=== PATIENT | male | born 1965 ===

== ENCOUNTER 2017-09-03 08:55 | Observation (INO) | payer BC ==
[2017-09-03 08:56] VITALS: BMI 22.8
[2017-09-03 09:58] LABS: BASO # 0.07 K/mm3 (0.0-2.0); BASO % 1.1 % (0.0-3.0); EOS # 0.2 (0.0-0.7); EOS % 2.5 % (1.5-5.0); GRAN # 3.97 (1.4-6.5); GRAN % 64.9 % (50.0-68.0); HEMATOCRIT 44.1 % (42.0-52.0); LYMPH # 1.3 (1.2-3.4); LYMPH % 20.5 % (22.0-35.0); MEAN CORPUSCULAR HEMOGLOBIN 32.5 pg (25.0-35.0); MEAN CORPUSCULAR HGB CONC 34.9 g/dl (31.0-37.0); MEAN PLATELET VOLUME 9.5 fl (7.0-11.0); MONO # 0.7 (0.1-0.6); RED CELL DISTRIBUTION WIDTH 12.5 % (11.5-14.5); WHITE BLOOD COUNT 6.1 10^3/ul (4.5-11.0)
[2017-09-03 10:08] LABS: PH,URINE 6.5 (4.7-8.0); URINE BILIRUBIN NEGATIVE (NEGATIVE); URINE BLOOD NEGATIVE (NEGATIVE); URINE GLUCOSE (UA) NEGATIVE (NEGATIVE); URINE KETONE NEGATIVE (NEGATIVE); URINE LEUKOCYTE ESTERASE NEGATIVE Leu/uL (NEGATIVE); URINE PROTEIN NEGATIVE mg/dL (<30 mg/dL); URINE UROBILINOGEN 0.2 E.U./dL (<1 E.U./dL)
[2017-09-03 10:09] LABS: URINE APPEARANCE CLEAR (CLEAR); URINE COLOR YELLOW (YELLOW)
[2017-09-03 10:12] LABS: ALB/GLOB RATIO 1.4 (1.1-1.8); ALKALINE PHOSPHATASE 65 U/L (38-126); ALT/SGPT 41 U/L (7-56); AST/SGOT 34 U/L (17-59); BILIRUBIN,TOTAL 0.7 mg/dL (0.2-1.3); BLOOD UREA NITROGEN 10 mg/dL (7-21); CALCIUM 9.6 mg/dL (8.4-10.5); CARBON DIOXIDE 25 mmol/L (21-33); CHLORIDE 104 mmol/L (98-107); GFR AFRICAN-AMERICAN > 60; GLUCOSE,RANDOM 97 mg/dL (70-110); POTASSIUM 3.9 mmol/L (3.6-5.0); SODIUM 139 mmol/L (132-148); TOTAL PROTEIN 7.4 g/dL (5.8-8.3)
--- NOTE | 2017-09-03 10:16 | RAD ---
HISTORY: dizziness/weakness COMPARISON: 10/11/2016. FINDINGS: LUNGS: The lungs are hyperinflated and there is peribronchial thickening with chronic changes in both lungs. There is a stable calcified granuloma in the right upper lobe. PLEURA: No significant pleural effusion identified, no pneumothorax apparent. CARDIOVASCULAR: Normal. OSSEOUS STRUCTURES: No significant abnormalities. VISUALIZED UPPER ABDOMEN: Normal. OTHER FINDINGS: None. IMPRESSION: No active pulmonary disease. COPD.
[2017-09-03 10:23] LABS: TROPONIN I < 0.01 ng/mL
--- NOTE | 2017-09-03 10:26 | CT ---
PROCEDURE: CT HEAD WITHOUT CONTRAST. HISTORY: dizziness COMPARISON: None available. TECHNIQUE: Axial computed tomography images were obtained through the head/brain without intravenous contrast. Radiation dose: Total exam DLP = 726 mGy-cm. This CT exam was performed using one or more of the following dose reduction techniques: Automated exposure control, adjustment of the mA and/or kV according to patient size, and/or use of iterative reconstruction technique. FINDINGS: HEMORRHAGE: No intracranial hemorrhage. BRAIN: No mass effect or edema. No atrophy or chronic microvascular ischemic changes. VENTRICLES: Unremarkable. No hydrocephalus. CALVARIUM: Unremarkable. PARANASAL SINUSES: Unremarkable as visualized. No significant inflammatory changes. MASTOID AIR CELLS: Unremarkable as visualized. No inflammatory changes. OTHER FINDINGS: None. IMPRESSION: No acute findings
--- NOTE | 2017-09-03 10:36 | ED PDOC ---
Arrival/HPI - General Historian: Patient <Bre Castañeda - Last Filed: 09/03/17 12:48> <Jony Abbasi - Last Filed: 09/03/17 13:07> - General Chief Complaint: Dizziness/Lightheaded Time Seen by Provider: 09/03/17 09:23 - History of Present Illness Narrative History of Present Illness (Text): 09/03/17 10:26 52-year-old male presents today with a one-day history of generalized weakness. Patient states he woke up this morning feeling extremely dizzy. Patient states when he stands up he feels as if he is going to pass out. Complaining of nausea without vomiting. No abdominal pain. Denies fevers or chills. Patient states he has been waking up in a cold sweat. Patient states he drinks alcohol on the weekends. He denies recent alcohol consumption. He denies chest pain. He denies headache. Denies dysuria or urinary frequency. Denies back pain. (Bre Castañeda) Past Medical History - Provider Review Nursing Documentation Reviewed: Yes - Travel History Have you recently traveled outside [place] w/in the past 3 mons?: No - Past History Past History: No Previous - Infectious Disease Hx of Infectious Diseases: None - Tetanus Immunization Tetanus Immunization: Unknown - Cardiac Hx Cardiac Disorders: No - Pulmonary Hx Respiratory Disorders: Yes Hx Asthma: Yes Hx Pneumonia: Yes - Neurological Hx Migraine: No - HEENT Hx Deafness: No - Renal Hx Dialysis: No - Endocrine/Metabolic Hx Endocrine Disorders: No - Hematological/Oncological Hx AIDS: No - Integumentary Hx Dermatological Disorder: No - Musculoskeletal/Rheumatological Hx Musculoskeletal Disorders: No - Gastrointestinal Hx Gastrointestinal Disorders: No - Genitourinary/Gynecological Hx Genitourinary Disorders: No - Psychiatric Hx Depression: No Hx Substance Use: No - Surgical History Other/Comment: Prost Right Eye 1982. Hernia Repair approx 3/4 years ago. - Anesthesia Hx Anesthesia: Yes Hx Anesthesia Reactions: No - Suicidal Assessment Feels Threatened In Home Enviroment: No <Bre Castañeda - Last Filed: 09/03/17 12:48> Family/Social History - Physician Review Nursing Documentation Reviewed: Yes Smoking Status: Current Some Days Smoker Hx Alcohol Use: Yes Frequency of alcohol use: Socially Hx Substance Use: No Hx Substance Use Treatment: No <Bre Castañeda - Last Filed: 09/03/17 12:48> - Physician Review Nursing Documentation Reviewed: Yes Family/Social History: Unknown Family HX <Jony Abbasi - Last Filed: 09/03/17 13:07> Allergies/Home Meds <Bre Castañeda - Last Filed: 09/03/17 12:48> <Jony Abbasi - Last Filed: 09/03/17 13:07> Allergies/Adverse Reactions: Allergies pcn Allergy (Severe, Uncoded 09/03/17 09:10) ANAPHYLAXIS Review of Systems - Review of Systems Constitutional: Fatigue. absent: Fevers Eyes: absent: Vision Changes, Photophobia, Eye Pain ENT: absent: Sore Throat, Sinus Congestion Respiratory: absent: SOB, Cough Cardiovascular: absent: Chest Pain, Palpitations Gastrointestinal: absent: Abdominal Pain, Constipation, Diarrhea, Nausea, Vomiting Genitourinary Male: absent: Dysuria, Frequency, Hematuria Musculoskeletal: absent: Arthralgias, Back Pain, Neck Pain Skin: absent: Rash, Pruritis Neurological: Dizziness, Disequilibrium. absent: Headache, Focal Weakness, Speech Changes, Facial Droop Endocrine: absent: Diaphoresis Hemo/Lymphatic: absent: Adenopathy Psychiatric: absent: Anxiety, Depression, Suicidal Ideation <Bre Castañeda T - Last Filed: 09/03/17 12:48> Physical Exam Vital Signs Reviewed: Yes Temperature: Afebrile Blood Pressure: Hypertensive Pulse: Regular Respiratory Rate: Normal Appearance: Positive for: Well-Appearing, Non-Toxic, Comfortable Pain Distress: None Mental Status: Positive for: Alert and Oriented X 3 Finger Stick Blood Glucose: 111 - Systems Exam Head: Present: Atraumatic Pupils: Present: PERRL Extroacular Muscles: Present: EOMI Conjunctiva: Present: Normal Mouth: Present: Moist Mucous Membranes Neck: Present: Normal Range of Motion Respiratory/Chest: Present: Clear to Auscultation, Good Air Exchange. No: Respiratory Distress, Accessory Muscle Use Cardiovascular: Present: Regular Rate and Rhythm, Normal S1, S2. No: Murmurs Abdomen: No: Tenderness, Distention, Rebound, Guarding Back: Present: Normal Inspection Upper Extremity: Present: Normal ROM Lower Extremity: Present: Normal ROM. No: Edema Neurological: Present: GCS=15, Speech Normal, Motor Func Grossly Intact, Normal Sensory Function Skin: Present: Warm, Dry, Normal Color. No: Rashes Psychiatric: Present: Alert, Oriented x 3 <Bre Castañeda - Last Filed: 09/03/17 12:48> Vital Signs Temp Pulse Resp BP Pulse Ox 09/03/17 11:36 85 18 130/90 100 09/03/17 09:45 97.7 F 82 16 152/87 H 100 Medical Decision Making <Bre Castañeda - Last Filed: 09/03/17 12:48> <Jony Abbasi - Last Filed: 09/03/17 13:07> ED Course and Treatment: 09/03/17 11:33 52-year-old male presents today with generalized weakness dizziness and near syncope. CBC within normal limits CMP within normal limits Troponin within normal limits EKG shows normal sinus rhythm at 83 bpm normal axis normal intervals no ST elevations Chest x-ray no infiltrate or effusion CAT scan of the head within normal limits Urinalysis within normal limits Patient was given aspirin and meclizine by mouth. Patient given normal saline at [address] abbasi discussed case with dr. post and resident in depth;accepts observational status admission impression; dizziness, weakness, near syncope observational status admission to [facility]. (Bre Castañeda) - Lab Interpretations Lab Results: 09/03/17 09:40 09/03/17 09:40 Lab Results 09/03/17 10:00: Urine Color Yellow, Urine Appearance Clear, Urine pH 6.5, Ur Specific [place] 1.010, Urine Protein Negative, Urine Glucose (UA) Negative, Urine Ketones Negative, Urine Blood Negative, Urine Nitrate Negative, Urine Bilirubin Negative, Urine Urobilinogen 0.2, Ur Leukocyte Esterase Negative 09/03/17 09:40: Triglycerides 93, Cholesterol 155, LDL Cholesterol Direct Pending, HDL Cholesterol 52 09/03/17 09:40: WBC 6.1, RBC 4.74, Hgb 15.4, Hct 44.1, MCV 93.0, MCH 32.5, MCHC 34.9, RDW 12.5, Plt Count 302, MPV 9.5, Gran % 64.9, Lymph % (Auto) 20.5 L, Campbell % (Auto) 11.0 H, Eos % (Auto) 2.5, Baso % (Auto) 1.1, Gran # 3.97, Lymph # 1.3, Campbell # 0.7 H, Eos # 0.2, Baso # 0.07 09/03/17 09:40: Sodium 139, Potassium 3.9, Chloride 104, Carbon Dioxide 25, Anion Gap 15, BUN 10, Creatinine 0.8, Est GFR ( Amer) > 60, Est GFR (Non- Af Amer) > 60, Random Glucose 97, Calcium 9.6, Total Bilirubin 0.7, AST 34, ALT 41, Alkaline Phosphatase 65, Lactate Dehydrogenase 391, Total Creatine Kinase 46 , Troponin I < 0.01, Total Protein 7.4, Albumin 4.3, Globulin 3.1, Albumin/ Globulin Ratio 1.4 - RAD Interpretation Radiology Orders: 09/03/17 09:45 HEAD W/O CONTRAST [CT] Stat 09/03/17 09:46 CHEST PORTABLE [RAD] Stat - Medication Orders Current Medication Orders: Albuterol/Ipratropium (Duoneb 3 Mg/0.5 Mg (3 Ml) Ud) 3 ml IH [id number] PRN PRN Reason: Shortness of Breath Sodium Chloride (Sodium Chloride 0.9%) 1,000 mls @ 100 mls/hr IV .Q10H [facility] Last Admin: 09/03/17 11:09 Dose: 100 mls/hr eMAR Start Stop Document 09/03/17 11:09 SE (Rec: 09/03/17 11:09 SE [id number]) Intravenous Solution Start Date 09/03/17 Start Time 11:09 Pantoprazole Sodium (Protonix Ec Tab) 40 mg PO 0600 [facility] Discontinued Medications Aspirin (Aspirin) 325 mg PO STAT STA Stop: 09/03/17 11:00 Last Admin: 09/03/17 11:05 Dose: 325 mg Meclizine HCl (Antivert) 25 mg PO STAT STA Stop: 09/03/17 11:29 Last Admin: 09/03/17 11:33 Dose: 25 mg - 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 <Jony Abbasi - Last Filed: 09/03/17 13:07> Disposition/Present on Arrival - Present on Arrival Any Indicators Present on Arrival: No History of DVT/PE: No History of Uncontrolled Diabetes: No Urinary Catheter: No History of Decub. Ulcer: No History Surgical Site Infection Following: None - Disposition Have Diagnosis and Disposition been Completed?: Yes Disposition Time: 11:30 Patient Plan: Observation <Bre Castañeda - Last Filed: 09/03/17 12:48> <Jony Abbasi - Last Filed: 09/03/17 13:07> - Disposition Diagnosis: Dizziness, Weakness, Near syncope Disposition: HOSPITALIZED Patient Problems: Current Active Problems Problem Status Onset Dizziness Acute Near syncope Acute Weakness Acute Condition: FAIR
[2017-09-03] MEDS: Sodium Chloride 0.9% 1,000 ML IV SCH (11:09)
[2017-09-03] MEDS ORDERED: Albuterol-Ipratrop 3 mg / 0.5 (3 ml) UD IH PRN (12:34)
[2017-09-03 13:06] LABS: CHOLESTEROL 155 mg/dL (130-200)
--- NOTE | 2017-09-03 14:32 | US ---
PROCEDURE: Bilateral carotid artery duplex ultrasound HISTORY: Carotid stenosis dizziness PHYSICIAN(S): Jay Mcelroy MD. TECHNIQUE: Duplex sonography and color-flow Doppler were used to evaluate the carotid bifurcations and limited segments of the vertebral arteries bilaterally. FINDINGS: There is mild smooth heterogeneous plaque noted at the carotid bifurcations bilaterally. The peak systolic velocity in the proximal right internal carotid artery is 64 cm/sec. This corresponds to a 20 to 39% proximal right ICA stenosis. Normal systolic velocities are noted in the proximal right external carotid artery. There is antegrade flow in the right vertebral artery. The peak systolic velocity in the proximal left internal carotid artery is 43 cm/sec. This corresponds to a 20 to 39% proximal left ICA stenosis. Normal systolic velocities are noted in the proximal left external carotid artery. There is antegrade flow in the left vertebral artery. IMPRESSION: 1. Bilateral 20-39% proximal ICA stenoses. 2. Antegrade flow in both vertebral arteries.
--- NOTE | 2017-09-03 15:09 | CP.PCM.CON ---
<Shira Rangel - Last Filed: 09/03/17 17:15> History of Present Illness - History of Present Illness History of Present Illness: PGY-2 Neurology consult note for Neurology for Dr. Mishra's service 52 year old male with PMH of asthma, tobacco use presents today with a one-day history of generalized weakness and lightheadedness. Patient states he woke up this morning feeling lightheaded, describing it as a feeling of almost passing out. He states that he has had previous episodes that were transient and resolved, however this morning it did not improve. Patient states that its worse when he stands and feels like hes going to pass out. He also reports night sweats and chills for the past few days. Patient endorses increasing stress at work as possible source. He also reports some nausea without vomiting and diarrhea. No abdominal pain. Patient states he drinks 5-6 beers on the weekends, denies recent consumption. He denies chest pain, headache, dysuria or urinary frequency, or back pain. PMH: asthma PSH: none family history: father prostate cancer, diabetes social history: tobacco use, smokes 1/2 ppd and chewing tobacco use, alcohol 5- 6 beers on the weekned, denies illicit drug use Review of Systems - Review of Systems All systems: reviewed and no additional remarkable complaints except (as stated in HPI) Past Patient History - Infectious Disease Hx of Infectious Diseases: None - Tetanus Immunizations Tetanus Immunization: Unknown - Past Social History Smoking Status: Current Some Days Smoker - CARDIAC Hx Cardiac Disorders: No - PULMONARY Hx Respiratory Disorders: Yes Hx Asthma: Yes Hx Pneumonia: Yes - NEUROLOGICAL Hx Migraine: No - HEENT Hx Deafness: No - RENAL Hx Dialysis: No - ENDOCRINE/METABOLIC Hx Endocrine Disorders: No - HEMATOLOGICAL/ONCOLOGICAL Hx AIDS: No - INTEGUMENTARY Hx Dermatological Problems: No - MUSCULOSKELETAL/RHEUMATOLOGICAL Hx Musculoskeletal Disorders: No - GASTROINTESTINAL Hx Gastrointestinal Disorders: No - GENITOURINARY/GYNECOLOGICAL Hx Genitourinary Disorders: No - PSYCHIATRIC Hx Depression: No Hx Substance Use: No - SURGICAL HISTORY Other/Comment: Prost Right Eye 1982. Hernia Repair approx 3/4 years ago. - ANESTHESIA Hx Anesthesia: Yes Hx Anesthesia Reactions: No Meds Allergies/Adverse Reactions: Allergies Allergy/AdvReac Type Severity Reaction Status Date / Time pcn Allergy Severe ANAPHYLAXIS Uncoded 09/03/17 09:10 - Medications Medications: Current Medications Albuterol/Ipratropium (Duoneb 3 Mg/0.5 Mg (3 Ml) Ud) 3 ml IH [id number] PRN PRN Reason: Shortness of Breath Sodium Chloride (Sodium Chloride 0.9%) 1,000 mls @ 100 mls/hr IV .Q10H [facility] Last Admin: 09/03/17 11:09 Dose: 100 mls/hr Pantoprazole Sodium (Protonix Ec Tab) 40 mg PO 0600 [facility] Physical Exam - Constitutional Appears: Well, No Acute Distress - Head Exam Head Exam: ATRAUMATIC, NORMAL INSPECTION, NORMOCEPHALIC - Eye Exam Eye Exam: EOMI, Normal appearance, PERRL Additional comments: history of right eye blindness - ENT Exam ENT Exam: Mucous Membranes Moist - Respiratory Exam Respiratory Exam: Clear to Auscultation Bilateral, Wheezes, NORMAL BREATHING PATTERN. absent: Rhonchi, Respiratory Distress - Cardiovascular Exam Cardiovascular Exam: REGULAR RHYTHM, +S1, +S2. absent: Tachycardia, Systolic Murmur - GI/Abdominal Exam GI & Abdominal Exam: Soft. absent: Distended, Tenderness - Extremities Exam Extremities exam: Positive for: normal inspection. Negative for: pedal edema, tenderness - Neurological Exam Neurological exam: Alert, CN II-XII Intact, Oriented x3 - Expanded Neurological Exam Expanded Patient oriented to: person, place, time Speech: Fluid Speech Cranial nerves: EOM's Intact: Normal, Tongue Deviation: Normal Cerebellar Function: Finger to Nose: Normal Neuro motor strength exam: Left Upper Extremity: 5, Right Upper Extremity: 5, Left Lower Extremity: 5, Right Lower Extremity: 5 - Skin Skin Exam: Dry, Intact, Normal Color, Warm Results - Vital Signs Recent Vital Signs: Last Vital Signs Temp 97.7 F 09/03/17 09:45 Pulse 85 09/03/17 11:36 Resp 18 09/03/17 11:36 BP 130/90 09/03/17 11:36 Pulse Ox 100 09/03/17 11:36 - Labs Result Diagrams: 09/03/17 09:40 09/03/17 09:40 Labs: Laboratory Results - last 24 hr 09/03/17 12:50 Influenza Typ A,B (EIA) Negative for flu a/b Assessment & Plan - Assessment and Plan (Free Text) Assessment: 52 year old male with PMH of asthma, tobacco use presents today with a one-day history of generalized weakness and lightheadedness possible due to orthostatic hypotension - CT head was negative - orthostatic mildly elevated - carotid US showed 20-39% proximal ICA stenoses - hydration - aviod sudden movements Case reviewed and discussed with attending <Rafael Mishra - Last Filed: 09/03/17 18:07> Meds - Medications Medications: Current Medications Albuterol/Ipratropium (Duoneb 3 Mg/0.5 Mg (3 Ml) Ud) 3 ml IH [id number] PRN PRN Reason: Shortness of Breath Sodium Chloride (Sodium Chloride 0.9%) 1,000 mls @ 100 mls/hr IV .Q10H [facility] Last Admin: 09/03/17 11:09 Dose: 100 mls/hr Pantoprazole Sodium (Protonix Ec Tab) 40 mg PO 0600 [facility] Zolpidem Tartrate (Ambien) 5 mg PO HS PRN; Protocol PRN Reason: Insomnia Results - Vital Signs Recent Vital Signs: Last Vital Signs Temp 99.9 F H 09/03/17 17:41 Pulse 85 09/03/17 17:41 Resp 18 09/03/17 17:41 BP 130/90 09/03/17 17:41 Pulse Ox 100 09/03/17 11:36 - Labs Result Diagrams: 09/03/17 09:40 09/03/17 09:40 Labs: Laboratory Results - last 24 hr 09/03/17 12:50 Influenza Typ A,B (EIA) Negative for flu a/b Attending/Attestation - Attestation I have personally seen and examined this patient.: Yes I have fully participated in the care of the patient.: Yes I have reviewed all pertinent clinical information: Yes
--- NOTE | 2017-09-03 17:23 | CARD ---
APPROVED REPORT EKG Measurement Heart [id number] <Conclusion> Normal sinus rhythm Normal ECG
[2017-09-03] MEDS ORDERED: Influenza Vaccine 60 mcg/0.5 mL SYR (4YR UP) IM ONE (18:04)
--- NOTE | 2017-09-03 19:57 | CP.PCM.HP ---
History of Present Illness - History of Present Illness History of Present Illness: CC: generalized weakness and dizziness 52 M with pmh of Asthma, Tobacco use, R eye blindness, presents to the ED for generalized weakness and dizziness. Pt states that his symptoms first started yesterday and has since gotten progressively worse. Pt states that this morning he went to work and was feeling very dizzy therefore he came to the hospital. He states that he has had these episodes before but it usually resolves on its own. He describes the dizziness as lightheadedness and feel is like he is going to fall therefore has to hold on to the wall. He denies the room spinning. He also states that 2 nights ago he had episode of chills but denies any fever or any other symptoms. 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 He also c/o poor appetite the past few days and has been eating less. He denies any other symptoms. Denies any campos, ear pain, sob, cp, abd pain, n/v/d. 12 point ROS performed and negative other than noted above. PMH: asthma, R eye blindness PSH: R eye surgery Med: none All: PCN Family history: father prostate cancer and diabetes social history: tobacco use, smokes 1 ppd, alcohol 5-6 beers on the weekned, denies illicit drug use Present on Admission - Present on Admission Any Indicators Present on Admission: No Review of Systems - Review of Systems All systems: reviewed and no additional remarkable complaints except Past Patient History - Infectious Disease Hx of Infectious Diseases: None - Tetanus Immunizations Tetanus Immunization: Unknown - Past Social History Smoking Status: Former Smoker - CARDIAC Hx Cardiac Disorders: No - PULMONARY Hx Respiratory Disorders: Yes Hx Asthma: Yes Hx Pneumonia: Yes - NEUROLOGICAL Hx Migraine: No - HEENT Hx Deafness: No - RENAL Hx Dialysis: No - ENDOCRINE/METABOLIC Hx Endocrine Disorders: No - HEMATOLOGICAL/ONCOLOGICAL Hx AIDS: No - INTEGUMENTARY Hx Dermatological Problems: No - MUSCULOSKELETAL/RHEUMATOLOGICAL Hx Falls: No - GASTROINTESTINAL Hx Gastrointestinal Disorders: No - GENITOURINARY/GYNECOLOGICAL Hx Genitourinary Disorders: No - PSYCHIATRIC Hx Depression: No - SURGICAL HISTORY Other/Comment: Prost Right Eye 1981. Hernia Repair approx 3/4 years ago. - ANESTHESIA Hx Anesthesia: Yes Hx Anesthesia Reactions: No Meds Allergies/Adverse Reactions: Allergies Allergy/AdvReac Type Severity Reaction Status Date / Time pcn Allergy Severe ANAPHYLAXIS Uncoded 09/03/17 09:10 Physical Exam - Constitutional Appears: No Acute Distress - Head Exam Head Exam: ATRAUMATIC, NORMOCEPHALIC - Eye Exam Eye Exam: EOMI, PERRL Pupil Exam: PERRL - ENT Exam ENT Exam: Mucous Membranes Moist - Respiratory Exam Respiratory Exam: NORMAL BREATHING PATTERN - Cardiovascular Exam Cardiovascular Exam: REGULAR RHYTHM, RRR, +S1, +S2 - GI/Abdominal Exam GI & Abdominal Exam: Normal Bowel Sounds, Soft - Extremities Exam Extremities exam: Negative for: calf tenderness, pedal edema - Neurological Exam Neurological exam: Alert, Oriented x3 Additional comments: [place] hallpike negative - Psychiatric Exam Psychiatric exam: Normal Affect, Normal Mood - Skin Skin Exam: Dry, Intact, Warm Results - Vital Signs Recent Vital Signs: Last Vital Signs Temp 99.9 F H 09/03/17 17:41 Pulse 80 09/03/17 18:04 Resp 18 09/03/17 17:41 BP 130/90 09/03/17 17:41 Pulse Ox 99 09/03/17 16:00 - Labs Result Diagrams: 09/04/17 05:40 09/04/17 05:40 Labs: Laboratory Results - last 24 hr 09/03/17 12:50 Influenza Typ A,B (EIA) Negative for flu a/b Assessment & Plan - Assessment and Plan (Free Text) Assessment: 52 M with pmh of Asthma, Tobacco use, R eye blindness, presents to the ED for generalized weakness and dizziness. 1. weakness / dizziness possibly - CT head showed no acute abnormality - EKG reviewed - Meclizine x 1 in the ED - NS @ 100 - Neuro consult - appreciate recs - Fall precautions - Physical therapy - F/u TSH,Hba1c, Lipid profile - F/u Carotid US and Echo - [place]-Hallpike negative - F/u Orthostatic hypoTN - AM labs 2. Asthma - Duoneb PRN - Stable 3.GI/DVT ppx - Protonix and SCDs - HHD Case and plan was reviewed and discussed with Dr Barrett.
[2017-09-04 01:06] VITALS: RESP 20
[2017-09-04] MEDS: Pantoprazole 40 mg EC Tab PO SCH (05:51)
[2017-09-04 06:26] LABS: BASO # 0.05 K/mm3 (0.0-2.0); BASO % 0.8 % (0.0-3.0); EOS # 0.3 (0.0-0.7); EOS % 4.8 % (1.5-5.0); GRAN # 4.1 (1.4-6.5); GRAN % 61.5 % (50.0-68.0); HEMATOCRIT 43.7 % (42.0-52.0); LYMPH # 1.4 (1.2-3.4); LYMPH % 21.5 % (22.0-35.0); MEAN CELL VOLUME 93.2 fl (80.0-105.0); MEAN CORPUSCULAR HEMOGLOBIN 31.8 pg (25.0-35.0); MEAN CORPUSCULAR HGB CONC 34.1 g/dl (31.0-37.0); MEAN PLATELET VOLUME 9.4 fl (7.0-11.0); MONO # 0.8 (0.1-0.6); MONO % 11.4 % (1.0-6.0); RED CELL DISTRIBUTION WIDTH 12.9 % (11.5-14.5); WHITE BLOOD COUNT 6.7 10^3/ul (4.5-11.0)
[2017-09-04 06:36] LABS: ALB/GLOB RATIO 1.2 (1.1-1.8); ALKALINE PHOSPHATASE 61 U/L (38-126); ALT/SGPT 43 U/L (7-56); AST/SGOT 31 U/L (17-59); BILIRUBIN,TOTAL 0.8 mg/dL (0.2-1.3); BLOOD UREA NITROGEN 11 mg/dL (7-21); CALCIUM 9.1 mg/dL (8.4-10.5); CARBON DIOXIDE 25 mmol/L (21-33); CHLORIDE 107 mmol/L (98-107); GFR AFRICAN-AMERICAN > 60; GLUCOSE,RANDOM 101 mg/dL (70-110); POTASSIUM 4.2 mmol/L (3.6-5.0); SODIUM 138 mmol/L (132-148); TOTAL PROTEIN 6.9 g/dL (5.8-8.3)
[2017-09-04 13:47] LABS: FREE T4 0.85 ng/dL (0.78-2.19); T4 8.5 ug/dL (5.5-11.0)
[2017-09-04 14:00] LABS: T3 1.48 ng/mL (0.97-1.69)
--- NOTE | 2017-09-04 14:01 | CT ---
PROCEDURE: CT Chest without contrast HISTORY: r/o malignancy COMPARISON: None. TECHNIQUE: Contiguous axial images were obtained through the chest without intravenous contrast enhancement. Sagittal and coronal reconstructions were performed. Radiation dose (DLP): 312 mGy-cm. This CT exam was performed using one or more of the following dose reduction techniques: Automated exposure control, adjustment of the mA and/or kV according to patient size, and/or use of iterative reconstruction technique. FINDINGS: LUNGS: There is a pleural base calcified 7 mm nodule in the right lung apex. This is unchanged. There is a small bulla in the right apex. The lungs are otherwise clear. MEDIASTINUM: Unremarkable thoracic aorta. No aneurysm. Normal sized heart. Main pulmonary artery unremarkable. No vascular congestion. Calcified pretracheal lymph node. PLEURA: No pleural fluid. No pneumothorax. BONES: No fracture. No destructive lesion. UPPER ABDOMEN: Grossly unremarkable. OTHER FINDINGS: None. IMPRESSION: No acute findings
--- NOTE | 2017-09-04 14:11 | CP.PCM.PN ---
Subjective - Date & Time of Evaluation Date of Evaluation: 09/04/17 Time of Evaluation: 07:45 - Subjective Subjective: PGY [address] INMAN/DR. MASON Patient seen and examined at bedside this AM. Patient resting comfortably. No acute events reported overnight. Patient reports feeling better than on admission. Still reports dizziness upon standing from seated position. Patient denies chest pain, shortness of breath, abdominal pain, nausea, vomiting, fever , chills. Objective - Vital Signs/Intake and Output Vital Signs (last 24 hours): Temp Pulse Resp BP Pulse Ox 98.5 F 82 20 156/72 H 99 09/04/17 06:00 09/04/17 06:00 09/04/17 06:00 09/04/17 06:00 09/04/17 06:00 Intake and Output: 09/04/17 09/04/17 06:59 18:59 Intake Total 1620 Output Total 1700 Balance -80 - Medications Medications: Current Medications Albuterol/Ipratropium (Duoneb 3 Mg/0.5 Mg (3 Ml) Ud) 3 ml IH [id number] PRN PRN Reason: Shortness of Breath Sodium Chloride (Sodium Chloride 0.9%) 1,000 mls @ 100 mls/hr IV .Q10H CORRINE Last Admin: 09/03/17 11:09 Dose: 100 mls/hr Multivitamins/Minerals (Therapeutic-M Tab) 1 tab PO 0800 CORRINE Pantoprazole Sodium (Protonix Ec Tab) 40 mg PO 0600 CORRINE Last Admin: 09/04/17 05:51 Dose: Not Given Zolpidem Tartrate (Ambien) 5 mg PO HS PRN; Protocol PRN Reason: Insomnia Last Admin: 09/03/17 21:05 Dose: 5 mg - Labs Labs: 09/04/17 05:40 09/04/17 05:40 - Constitutional Appears: Non-toxic - Head Exam Head Exam: ATRAUMATIC, NORMAL INSPECTION, NORMOCEPHALIC - Eye Exam Eye Exam: EOMI, PERRL - ENT Exam ENT Exam: Mucous Membranes Moist - Cardiovascular Exam Cardiovascular Exam: REGULAR RHYTHM, +S1, +S2 - GI/Abdominal Exam GI & Abdominal Exam: Soft, Normal Bowel Sounds. absent: Tenderness - Extremities Exam Extremities Exam: Full ROM. absent: Pedal Edema - Back Exam Back Exam: NORMAL INSPECTION - Neurological Exam Neurological Exam: Alert, Awake, Oriented x3 Neuro motor strength exam: Left Upper Extremity: 5, Right Upper Extremity: 5, Left Lower Extremity: 5, Right Lower Extremity: 5 - Psychiatric Exam Psychiatric exam: Normal Affect, Normal Mood - Skin Skin Exam: Dry, Intact. absent: Rash Assessment and Plan (1) Dizziness Status: Acute (2) Near syncope Status: Acute (3) Weakness Status: Acute (4) Asthma Status: Acute - Assessment and Plan (Free Text) Assessment: 52 M with pmh of Asthma, Tobacco use, R eye blindness, presented to the ED for generalized weakness and dizziness. Patient admitted for further evaluation by neurology, cardiology and primary medical team Plan: 1. Orthostatic hypotension - Etiology: Volume vs. autoimmune autonomic neuropathy vs. multiple system atrophy - Positive orthostatic hypotension on admission, positive today - Neuro consulted, recs appreciated - Fall precautions - CT head: No acute abnormalities - Carotid US: 20-39& bilateral proximal ICA - Echocardiogram: final read pending - Physical therapy continued - TSH slight hyperthyroid, repeat today if low again consider thyroid US - HgbA1c nml, Lipid profile wnl - T4, T3, MARIAJOSE, AFP, RPR, urine and protein electrophoresis, HIV 2. Asthma - Duoneb PRN - Stable 3.GI/DVT ppx - Protonix and SCDs - HHD Case and plan was reviewed and discussed with Dr. Mason
[2017-09-04 15:06] LABS: THYROID STIMULATING HORMONE 0.58 mIU/mL (0.46-4.68)
--- NOTE | 2017-09-04 23:14 | CARD ---
APPROVED REPORT EXAM: Two-dimensional and M-mode echocardiogram with Doppler and color Doppler. INDICATION DIZZINESS 2D DIMENSIONS Left Atrium (2D)3.0 (1.6-4.0cm)IVSd1.0 (0.7-1.1cm) LVDd4.4 (3.9-5.9cm)PWd1.1 (0.7-1.1cm) LVDs2.8 (2.5-4.0cm)FS (%) 36.2 % LVEF (%)66.2 (>50%) M-Mode DIMENSIONS Aortic Root2.70 (2.2-3.7cm)Aortic Cusp Exc.1.80 (1.5-2.0cm) Aortic Valve AoV Peak Xeafwppk097.0cm/Lily Peak GR.6mmHg Mitral Valve E/A ratio0.0 TDI E/Lateral E'0.0E/Medial E'0.0 Tricuspid Valve TR Peak [id number] [id number] Peak Gr.11mmHg [id number] LEFT VENTRICLE The left ventricle is normal size. There is normal left ventricular wall thickness. The left ventricular function is normal. The left ventricular ejection fraction is within the normal range. There is normal LV segmental wall motion. Transmitral Doppler flow pattern is Grade I-abnormal relaxation pattern. RIGHT VENTRICLE The right ventricle is normal size. There is normal right ventricular wall thickness. The right ventricular systolic function is normal. ATRIA The left atrium size is normal. The right atrium size is normal. AORTIC VALVE The aortic valve is moderately thickened. No aortic regurgitation is present. There is no aortic valvular stenosis. MITRAL VALVE The mitral valve is normal in structure. There is no mitral valve regurgitation noted. There is no mitral valve stenosis. TRICUSPID VALVE The tricuspid valve is normal in structure. There is no tricuspid valve regurgitation noted. GREAT VESSELS The aortic root is normal in size. The IVC was not visualized. PERICARDIAL EFFUSION There is no pericardial effusion. <Conclusion> The left ventricle is normal size. There is normal left ventricular wall thickness. The left ventricular function is normal. The left ventricular ejection fraction is within the normal range. There is normal LV segmental wall motion. Transmitral Doppler flow pattern is Grade I-abnormal relaxation pattern.
[2017-09-05] MEDS: Pantoprazole 40 mg EC Tab PO SCH (05:38)
[2017-09-05] MEDS: Sodium Chloride 0.9% 1,000 ML IV SCH (06:17)
[2017-09-05 06:23] LABS: BASO # 0.07 K/mm3 (0.0-2.0); BASO % 0.9 % (0.0-3.0); EOS # 0.4 (0.0-0.7); EOS % 5.8 % (1.5-5.0); GRAN # 4.38 (1.4-6.5); GRAN % 57.9 % (50.0-68.0); HEMATOCRIT 43.5 % (42.0-52.0); LYMPH # 1.8 (1.2-3.4); LYMPH % 24.3 % (22.0-35.0); MEAN CORPUSCULAR HEMOGLOBIN 31.7 pg (25.0-35.0); MEAN CORPUSCULAR HGB CONC 33.8 g/dl (31.0-37.0); MEAN PLATELET VOLUME 9.5 fl (7.0-11.0); MONO # 0.8 (0.1-0.6); MONO % 11.1 % (1.0-6.0); WHITE BLOOD COUNT 7.6 10^3/ul (4.5-11.0)
[2017-09-05 06:50] LABS: ALB/GLOB RATIO 1.3 (1.1-1.8); ALKALINE PHOSPHATASE 62 U/L (38-126); ALT/SGPT 45 U/L (7-56); AST/SGOT 44 U/L (17-59); BILIRUBIN,TOTAL 0.5 mg/dL (0.2-1.3); BLOOD UREA NITROGEN 11 mg/dL (7-21); CARBON DIOXIDE 23 mmol/L (21-33); CHLORIDE 105 mmol/L (98-107); GFR AFRICAN-AMERICAN > 60; GLUCOSE,RANDOM 104 mg/dL (70-110); POTASSIUM 3.7 mmol/L (3.6-5.0); SODIUM 139 mmol/L (132-148); TOTAL PROTEIN 6.9 g/dL (5.8-8.3)
[2017-09-05] MEDS ORDERED: Multivitamin With Minerals Tab PO SCH (08:00)
[2017-09-05 09:58] LABS: TOTAL PROTEIN, SERUM 7.3 g/dL (6.1-8.1)
[2017-09-05 10:04] VITALS: BP 136/88; TEMP 98.7; O2SAT 98
--- NOTE | 2017-09-05 10:10 | CON ---
DATE: 09/05/2017 PULMONARY CONSULTATION REASON FOR CONSULTATION: Pulmonary nodule. REFERRING PHYSICIAN: Terrell Mason MD HISTORY OF PRESENT ILLNESS: The patient is a 52-year-old male, with past medical history significant for asthma, chronic obstructive pulmonary disease, positive active smoker, who presented to [facility] with a 1-day history of progressive dizziness. The patient actually presented to the hospital on 09/03/2017. Upon admission(in the ER), the patient complained of severe dizziness - to the point where he was almost going to pass out. He was thus admitted for additional evaluation. There is no history of shortness of breath at rest or dyspnea on exertion. The patient does state to a chronic occasional cough with no sputum production. There is no history of chest pain, coughing up of blood, or chest pain - made worse with deep respirations. There is no history of temperatures, chills or infectious exposure. There is no history of night sweats, weight loss or appetite change prior to the above events. No history of leg or calf pains. No history of syncope or diaphoresis. No history of recent travel or trauma. REVIEW OF SYSTEMS: The patient did experience nausea at home. No vomiting or diarrhea. No acute urinary symptoms. No new musculoskeletal complaints. Rest of the review of systems negative. ALLERGIES: PENICILLIN. SOCIAL HISTORY: Positive for tobacco and negative for alcohol. FAMILY HISTORY: No inheritable diseases.. MEDICATIONS: Include albuterol HFA used on a p.r.n. basis. PHYSICAL EXAMINATION: GENERAL: The patient appears comfortable this morning. He is not short of breath at rest. VITAL SIGNS: Temperature is 98.8, pulse 71, respirations 18/20, blood pressure 134/93. Oxygen saturation on room air is 97%. HEENT: Normocephalic, atraumatic. NECK: No JVD. CARDIOVASCULAR: Positive S1, S2. No S3 gallop. LUNGS: Clear bilaterally. EXTREMITIES: No clubbing, cyanosis or edema. Calves are nontender to palpation. GI: Abdomen is soft, nontender and nondistended. Bowel sounds are positive. SKIN: No acute rash. NEUROLOGIC: Exam limited at the present time. PERTINENT LABORATORY DATA: CT scan of the chest was done on 09/04/2017 and reviewed. There is a pleural-based calcified 7-mm nodule in the right upper lobe. This finding is unchanged from the previous CT scan done 10/11/2016. There is no acute pulmonary consolidation. There is no lymphadenopathy. CBC: White count 7.6, hemoglobin 14.7, hematocrit 43.5, platelets of 308,000. Complete metabolic profile - all values within normal limits. IMPRESSION: 1. Dizziness, near syncope. 2. Asthma. 3. Chronic obstructive pulmonary disease. 4. Solitary pulmonary nodule - right upper lobe. PLAN: The patient presented to [facility] - originally on 09/03/2017 - with progressive dizziness for 1 day. It got to the point, where the patient thought he was going to pass out. He was thus admitted for additional evaluation. I would continue with the neurologic evaluation. Input by Dr. Mishra is noted. I did review the CT scan of the chest - noted above. The CT scan reveals a small, calcified right upper lobe nodule. Again, there is no acute pulmonary consolidation. There is no lymphadenopathy. As above, the most present CT scan is not significantly changed from the previous CT scan done on 10/11/2016. I did discuss the CT scan findings with the patient at length. I have also discussed the patient's smoking history with him at length. I did notify the patient-- that this CT scan will need to be followed --as an outpatient. The patient is in full agreement. I did give the patient my card/information for a followup appointment. Clinical status of the patient is improved overall. He is feeling much better - compared to the initial presentation. Additional evaluation will be as per Neurology. I will discuss the above with Dr. Mason. Thank you very much for this pulmonary consultation. Brendon Jackson MD MTDFransico
--- NOTE | 2017-09-05 11:45 | CP.PCM.DIS ---
Provider - Provider Date of Admission: 09/03/17 11:53 Attending physician: Terrell Mason MD Primary care physician: Terrell Mason MD Consults: Neuro: Dr. Rafael Mishra Pulmonology: Dr. Brendon Jackson Time Spent in preparation of Discharge (in minutes): 30 Diagnosis - Discharge Diagnosis (1) Dizziness Status: Acute (2) Near syncope Status: Acute (3) Weakness Status: Acute (4) Asthma Status: Acute (5) Orthostatic hypotension Status: Acute Hospital Course - Lab Results Lab Results: Most Recent Lab Values WBC 7.6 10^3/ul (4.5-11.0) 09/05/17 05:30 RBC 4.63 10^6/uL (3.5-6.1) 09/05/17 05:30 Hgb 14.7 g/dL (14.0-18.0) 09/05/17 05:30 Hct 43.5 % (42.0-52.0) 09/05/17 05:30 MCV 94.0 fl (80.0-105.0) 09/05/17 05:30 MCH 31.7 pg (25.0-35.0) 09/05/17 05:30 MCHC 33.8 g/dl (31.0-37.0) 09/05/17 05:30 RDW 13.0 % (11.5-14.5) 09/05/17 05:30 Plt Count 308 10^3/uL (120.0-450.0) 09/05/17 05:30 MPV 9.5 fl (7.0-11.0) 09/05/17 05:30 Gran % 57.9 % (50.0-68.0) 09/05/17 05:30 Lymph % (Auto) 24.3 % (22.0-35.0) 09/05/17 05:30 Pope % (Auto) 11.1 % (1.0-6.0) H 09/05/17 05:30 Eos % (Auto) 5.8 % (1.5-5.0) H 09/05/17 05:30 Baso % (Auto) 0.9 % (0.0-3.0) 09/05/17 05:30 Gran # 4.38 (1.4-6.5) 09/05/17 05:30 Lymph # 1.8 (1.2-3.4) 09/05/17 05:30 Pope # 0.8 (0.1-0.6) H 09/05/17 05:30 Eos # 0.4 (0.0-0.7) 09/05/17 05:30 Baso # 0.07 K/mm3 (0.0-2.0) 09/05/17 05:30 Sodium 139 mmol/L (132-148) 09/05/17 05:30 Potassium 3.7 mmol/L (3.6-5.0) 09/05/17 05:30 Chloride 105 mmol/L (98-107) 09/05/17 05:30 Carbon Dioxide 23 mmol/L (21-33) 09/05/17 05:30 Anion Gap 14 (10-20) 09/05/17 05:30 BUN 11 mg/dL (7-21) 09/05/17 05:30 Creatinine 0.8 mg/dl (0.8-1.5) 09/05/17 05:30 Est GFR ( Amer) > 60 09/05/17 05:30 Est GFR (Non-Af Amer) > 60 09/05/17 05:30 Random Glucose 104 mg/dL (70-110) 09/05/17 05:30 Hemoglobin A1c 5.3 % (4.2-6.5) 09/03/17 09:40 Calcium 9.0 mg/dL (8.4-10.5) 09/05/17 05:30 Total Bilirubin 0.5 mg/dL (0.2-1.3) 09/05/17 05:30 AST 44 U/L (17-59) 09/05/17 05:30 ALT 45 U/L (7-56) 09/05/17 05:30 Alkaline Phosphatase 62 U/L (38-126) 09/05/17 05:30 Lactate Dehydrogenase 391 U/L (333-699) 09/03/17 09:40 Total Creatine Kinase 46 U/L (35-230) 09/03/17 09:40 Troponin I < 0.01 ng/mL 09/03/17 09:40 Total Protein 6.9 g/dL (5.8-8.3) 09/05/17 05:30 Total Protein (PEP) 7.3 g/dL (6.1-8.1) 09/04/17 12:45 Albumin 4.0 g/dL (3.0-4.8) 09/05/17 05:30 Globulin 2.9 gm/dL 09/05/17 05:30 Albumin/Globulin Ratio 1.3 (1.1-1.8) 09/05/17 05:30 Triglycerides 93 mg/dL (35-160) 09/03/17 09:40 Cholesterol 155 mg/dL (130-200) 09/03/17 09:40 LDL Cholesterol Direct 79 mg/dL (0-129) 09/03/17 09:40 HDL Cholesterol 52 mg/dL (29-60) 09/03/17 09:40 Free T4 0.85 ng/dL (0.78-2.19) 09/04/17 12:45 Thyroxine (T4) 8.5 ug/dL (5.5-11.0) 09/04/17 12:45 Total T3 1.48 ng/mL (0.97-1.69) 09/04/17 12:45 TSH 3rd Generation 0.58 mIU/mL (0.46-4.68) 09/04/17 12:45 Urine Color Yellow (YELLOW) 09/03/17 10:00 Urine Appearance Clear (CLEAR) 09/03/17 10:00 Urine pH 6.5 (4.7-8.0) 09/03/17 10:00 Ur Specific [place] 1.010 (1.005-1.035) 09/03/17 10:00 Urine Protein Negative mg/dL (<30 mg/dL) 09/03/17 10:00 Urine Glucose (UA) Negative mg/dL (NEGATIVE) 09/03/17 10:00 Urine Ketones Negative mg/dL (NEGATIVE) 09/03/17 10:00 Urine Blood Negative (NEGATIVE) 09/03/17 10:00 Urine Nitrate Negative (NEGATIVE) 09/03/17 10:00 Urine Bilirubin Negative (NEGATIVE) 09/03/17 10:00 Urine Urobilinogen 0.2 E.U./dL (<1 E.U./dL) 09/03/17 10:00 Ur Leukocyte Esterase Negative Mohini/uL (NEGATIVE) 09/03/17 10:00 RPR Nonreactive (NONREACTIVE) 09/04/17 11:00 Influenza Typ A,B (EIA) Negative for flu a/b (NEGATIVE) 09/03/17 12:50 - Hospital Course Hospital Course: Patient is a 52 year old male with past medical history of asthma and tobacco abuse who presented to [facility] for dizziness. - Date & Time of H&P Date of H&P: 09/03/17 Time of H&P: 19:46 Discharge Exam - Head Exam Head Exam: ATRAUMATIC, NORMAL INSPECTION, NORMOCEPHALIC - Eye Exam Eye Exam: EOMI, PERRL Additional comments: Right eye blindness - ENT Exam ENT Exam: Mucous Membranes Dry - Neck Exam Neck exam: Full Rom - Respiratory Exam Respiratory Exam: Clear to PA & Lateral, NORMAL BREATHING PATTERN - Cardiovascular Exam Cardiovascular Exam: REGULAR RHYTHM, +S1, +S2 - GI/Abdominal Exam GI & Abdominal Exam: Normal Bowel Sounds, Unremarkable - Extremities Exam Extremities exam: pedal pulses present - Back Exam Back exam: NORMAL INSPECTION - Neurological Exam Neurological exam: Alert, Normal Gait, Oriented x3 - Psychiatric Exam Psychiatric exam: Normal Affect, Normal Mood - Skin Skin Exam: Dry, Intact Discharge Plan - Discharge Medications Prescriptions: RX: Albuterol HFA [Ventolin HFA 90 mcg/actuation (8 g)] 1 - 2 puff IH Q4H PRN # 1 bottle PRN Reason: Wheezing - Follow Up Plan Condition: FAIR Disposition: HOME/ ROUTINE Instructions: Asthma (DC), Asthma (GEN), Weakness (GEN) Additional Instructions: Follow up with Dr. Mason in his office with in one week of discharge Dr. Mason office - Phone#: , - Address:[address] [place] [address] Have a repeat Chest CT within the next 6 months for evaluation of pulmonary lung nodule Maintain euvolemic status by drinking plenty of fluids through out day Return to the emergency department or hospital if your symptoms worsen or return Take all medications as prescribed to you Referrals: Terrell Mason MD [Staff Provider] - Brendon Jackson MD [Staff Provider] -
[2017-09-05 11:55] VITALS: PULSE 77
[2017-09-05 19:27] LABS: BETA 1 GLOBULIN 0.4 g/dL (0.4-0.6); BETA 2 GLOBULIN 0.3 g/dL (0.2-0.5); GAMMA GLOBULIN 1.2 g/dL (0.8-1.7)
== END 2017-09-05 13:04 | disposition home or self-care (01) ==
LOC: ED 08:55 → ERH 11:53 → 3RSO 16:17 → 3RNO 09-04 21:35
PROVIDERS: ADMIT Internal Medicine; ATTEND Internal Medicine
DX: I95.1 Orthostatic hypotension (principal); J44.9 Chronic obstructive pulmonary disease, unspecified; F17.210 Nicotine dependence, cigarettes, uncomplicated; H54.61 Unqualified visual loss, right eye, normal vision left eye; Z80.42 Family history of malignant neoplasm of prostate; Z83.3 Family history of diabetes mellitus; Z87.01 Personal history of pneumonia (recurrent); Z88.0 Allergy status to penicillin; Z87.892 Personal history of anaphylaxis; R40.2412 Glasgow coma scale score 13-15, at arrival to emergency department; R91.1 Solitary pulmonary nodule
CPT/HCPCS: 36415; 70450; 71010; 71250; 80053; 80061; 81003; 82550; 83036; 83615; 84155; 84165; 84439; 84443; 84480; 84484; 85025; 86039; 86334; 86592; 86780; 87389; 87804; 93005; 93306; 93880; 97116; 97161; 99285; G0378; G8978; G8979; G8980; J7040

== ENCOUNTER 2017-12-25 09:41 | Emergency (ER) | payer OTHER, BC ==
[2017-12-25 09:42] VITALS: BMI 22.8
[2017-12-25 09:57] VITALS: RESP 18; TEMP 98.3; O2SAT 98
--- NOTE | 2017-12-25 10:01 | ED PDOC ---
Arrival/HPI - General Chief Complaint: Trauma Time Seen by Provider: 12/25/17 09:56 Historian: Patient - History of Present Illness Narrative History of Present Illness (Text): 12/25/17 09:57 52yr old male presents today with laceration to left thumb. pt states around 7am today he sustained a laceration to the left thumb with a paper box maker. pt c/o pain to the laceration site. denies limited rom of thumb. pt denies decreased sensation outside of his normal. pt states that he always has decreased sensation in all his fingertips as he works with his hands daily. pt states last tetanus shot was 2 years ago. pt denies fever/chills. no medications taken at home. no other complaints. Time/Duration: 1-3 hours Symptom Onset: Sudden Symptom Course: Unchanged Quality: Stabbing, Burning Severity Level: 3 Past Medical History - Provider Review Nursing Documentation Reviewed: Yes - Travel History Have you recently traveled outside [place] w/in the past 3 mons?: No - Past History Past History: No Previous - Infectious Disease Hx of Infectious Diseases: None - Tetanus Immunization Tetanus Immunization: Up to Date - Cardiac Hx Cardiac Disorders: No - Pulmonary Hx Respiratory Disorders: Yes Hx Asthma: Yes Hx Pneumonia: Yes - Neurological Hx Neurological Disorder: No - HEENT Hx HEENT Disorder: No - Renal Hx Renal Disorder: No - Endocrine/Metabolic Hx Endocrine Disorders: No - Hematological/Oncological Hx Blood Disorders: No - Integumentary Hx Dermatological Disorder: No - Musculoskeletal/Rheumatological Hx Musculoskeletal Disorders: No - Gastrointestinal Hx Gastrointestinal Disorders: No - Genitourinary/Gynecological Hx Genitourinary Disorders: No - Psychiatric Hx Psychophysiologic Disorder: No Hx Substance Use: No - Surgical History Other/Comment: Prost Right Eye 1982. Hernia Repair approx 3/4 years ago. - Anesthesia Hx Anesthesia: Yes Hx Anesthesia Reactions: No - Suicidal Assessment Feels Threatened In Home Enviroment: No Family/Social History - Physician Review Nursing Documentation Reviewed: Yes Family/Social History: Unknown Family HX Smoking Status: Current Some Days Smoker Hx Alcohol Use: Yes Frequency of alcohol use: Socially Hx Substance Use: No Hx Substance Use Treatment: No Allergies/Home Meds Allergies/Adverse Reactions: Allergies pcn Allergy (Severe, Uncoded 12/25/17 09:50) ANAPHYLAXIS Review of Systems - Review of Systems Constitutional: absent: Fatigue, Fevers Respiratory: absent: SOB, Cough Cardiovascular: absent: Chest Pain, Palpitations Gastrointestinal: absent: Abdominal Pain, Nausea, Vomiting Musculoskeletal: Arthralgias. absent: Back Pain Skin: Laceration Neurological: absent: Headache, Dizziness Psychiatric: absent: Anxiety, Depression Physical Exam Vital Signs Reviewed: Yes Vital Signs Temp Pulse Resp BP Pulse Ox 12/25/17 09:56 98.3 F 89 18 149/94 H 98 Temperature: Afebrile Blood Pressure: Hypertensive Pulse: Regular Respiratory Rate: Normal Appearance: Positive for: Well-Appearing, Non-Toxic, Comfortable Pain Distress: None Mental Status: Positive for: Alert and Oriented X 3 - Systems Exam Head: Present: Atraumatic Respiratory/Chest: Present: Clear to Auscultation Cardiovascular: Present: Regular Rate and Rhythm Upper Extremity: Present: Normal ROM, NORMAL PULSES, Tenderness (left thumb; there is a 3.5cm linear superficial laceration to the volar/lateral aspect of the thumb over mcp/base of the thumb; no active bleeding; no edema, no erythema ; full rom of thumb; ), Capillary Refill < 2s, Other (decreased sensation noted to fingertips of all fingers, full rom of all fingers. cap refill <2. ). No: Swelling, Erythema, Temperature Abnormalties, Deformity Neurological: Present: GCS=15, Speech Normal Skin: Present: Warm, Dry, Normal Color Psychiatric: Present: Alert, Oriented x 3 Medical Decision Making ED Course and Treatment: 12/25/17 10:04 Patient is nontoxic well appearing in no distress. Vital signs are stable. Wound irrigated well with high pressure irrigation Tetanus up to date ( within the next 2 years per patient) motrin, bactrim Laceration repair: 6 sutures placed Bacitracin and dressing applied, finger splint applied. Patient was advised to keep the wound clean and dry, apply bacitracin twice daily. Advised to return immediately if signs of infection develop or return if any other concerning symptoms develop Patient verbalizes understanding of discharge instructions and need for immediate followup. case discussed with attending of record. Impression: Laceration, thumb Motrin every 6 hours as needed for pain Bactrim DS one tablet twice daily x 7 days Keep the wound clean and dry, apply bacitracin twice daily Return in 10 days for suture removal Return immediately if signs of infection develop: High fevers, increasing pain, redness, swelling, purulent discharge Follow up with the Hand specialist within the next 2 days. Followup with primary care physician within the next 2 days Return if any other concerning symptoms develop - Medication Orders Current Medication Orders: Discontinued Medications Ibuprofen (Motrin Tab) 600 mg PO STAT STA Stop: 12/25/17 10:11 Trimethoprim/Sulfamethoxazole (Bactrim Ds Tab) 1 tab PO STAT STA PRN Reason: Protocol Stop: 12/25/17 10:11 Procedure: Wound Repair - Procedure Procedure: Wound Repair: laceration, thumb - Consent Obtained Consent obtained: Verbal - Performed by Performed by: Mid-level Provider - Indications Indication(s):: Laceration - Location Location:: Left Finger:: Left, Thumb Shape:: Linear Dimensions Length cm: 3.5cm Depth:: Epidermis - Anesthetic Technique Anesthetic Technique: Local Local/Regional Anesthetic:: Lidocaine 1% (2cc) - Debris Debris:: None - Irrigated Irrigated with ml of normal saline: copious amounts of NS using high pressure irrigation - Complexity Complexity:: Simple (one layer) - Wound repair method Sutures:: # (6), Size (4.0), Type (nylon), Technique (interrupted) - Complications Complications: none - Patient tolerated procedure Patient Tolerated Procedure:: Well Disposition/Present on Arrival - Present on Arrival Any Indicators Present on Arrival: No History of DVT/PE: No History of Uncontrolled Diabetes: No Urinary Catheter: No History of Decub. Ulcer: No History Surgical Site Infection Following: None - Disposition Have Diagnosis and Disposition been Completed?: Yes Diagnosis: Laceration of thumb Disposition: HOME/ ROUTINE Disposition Time: 10:06 Patient Plan: Discharge Patient Problems: Current Active Problems Problem Status Onset Laceration of thumb Acute Condition: GOOD Discharge Instructions (ExitCare): Laceration Repair With Stitches (DC) Additional Instructions: Motrin every 6 hours as needed for pain Bactrim DS one tablet twice daily x 7 days Keep the wound clean and dry, apply bacitracin twice daily Return in 10 days for suture removal Return immediately if signs of infection develop: High fevers, increasing pain, redness, swelling, purulent discharge Follow up with the Hand specialist within the next 2 days. Followup with primary care physician within the next 2 days Return if any other concerning symptoms develop Prescriptions: Ibuprofen [Motrin] 600 mg PO Q6H PRN #20 tab PRN Reason: pain/fever reduction Sulfamethoxazole/Trimethoprim [Bactrim DS 800 mg-160 mg] 1 tab PO BID #14 tab Referrals: Ramsey Prieto MD [Staff Provider] - Follow up with primary [facility] [place] [place] [Outside] - Follow up with primary Dustin Cazares MD [Staff Provider] - Follow up with primary Forms: [employer] (Slovak), WORK NOTE
[2017-12-25] MEDS ORDERED: Tmp-Smz 800 mg-160 mg DS Tab PO STA (10:10)
[2017-12-25] MEDS ORDERED: Lidocaine 1% Inj (20ml) ONE (10:34)
[2017-12-25 11:03] VITALS: BP 148/92; PULSE 88
== END 2017-12-25 11:15 | disposition home or self-care (01) ==
LOC: ED 09:41
DX: S61.012A Laceration without foreign body of left thumb without damage to nail, initial encounter (principal); W27.5XXA Contact with paper-cutter, initial encounter; Y92.89 Other specified places as the place of occurrence of the external cause; Y99.8 Other external cause status